=== PATIENT | female | born 2000 | race Caucasian/White ===

== ENCOUNTER 2024-09-27 17:06 | Emergency (ER) | payer BC, SELFPAY ==
[2024-09-27 17:26] VITALS: BP 133/72; PULSE 75; RESP 16; TEMP 37.1; O2SAT 97; BMI 24.0
--- NOTE | 2024-09-27 18:31 | ED.GENADULT ---
HPI - General Adult General Chief complaint: Skin/Abscess/Foreign Body Stated complaint: cut on left hand Time Seen by Provider: 09/27/24 18:19 History of Present Illness HPI narrative: Pt here for eval of numbness to pointer finger after injury to L hand/base of pointer finger while whittling wood this afternoon. Pt was seen in , injury treated with wound glue. Per Pt: After going home and discussing numbness with family and internet search , Pt is concerned about time-sensitive nerve damage. Tetanus UTD as of today. 24-year-old young woman presenting to the emergency department with concern of numbness persisting in her left index finger on the radial side. Was seen earlier today in urgent care following a laceration to the palm over the MCP of the 1st finger. Was assessed to be rather superficial and ultimately closed with glue following cleaning and exploration. Did have diminished sensation in this same area at that time and was recommended to be seen if symptoms were not resolving. Function was noted to be normal. It sounds like after further consideration with parents and further research has concerns about possibly needing nerve repair. Requesting an ultrasound for assessment in this regard. Deanna suspects that this laceration was deeper than initially suspected. Is concerned about long-term lack of sensation here. I believe right-hand dominant. Is also having a good deal of pain over the MCP joint with extension. Related Data Home Medications ?Medication ?Instructions ?Recorded ?Confirmed isvomow-uenfotijvcedl-jaznzmep 250 2 tab PO Q6H PRN 08/29/24 09/27/24 mg-250 mg-65 mg tablet (Excedrin Migraine) Previous Rx's ?Medication ?Instructions ?Recorded desogestrel 0.15 mg-ethinyl 1 tab PO QDAY #84 tabs 09/05/24 estradiol 0.03 mg tablet (Apri) Allergies Allergy/AdvReac Type Severity Reaction Status Date / Time No Known Drug Allergies Allergy Verified 09/27/24 17:26 Review of Systems Status of ROS: Reports: 6 or more systems reviewed and unremarkable except as noted in History and below PFSH PFSH Surgical History History of sinus surgery ?Z98.890 - Other specified postprocedural states (ICD-10) H/O wisdom tooth extraction ?K08.409 - Partial loss of teeth, unspecified cause, unspecified class (ICD-10) Family History Mother Depression Thyroid disease Social History Narrative: [employer] student Active in dance Nonsmoker 2-3 drinks per week Highest level of school completed/degree received: high school graduate Physical activity type details: Dance Smoking Status: Never smoker How often do you have a drink containing alcohol: 2-4 times a month How many standard drinks containing alcohol do you have on a typical day: 1 or 2 How often do you have six or more drinks on one occasion: Never AUDIT-C Alcohol total score: 2 Non-prescribed substance use: marijuana (any form) Exam Narrative: Exam Narrative: Very pleasant. NAD. Favoring the left hand. Examination of this hand shows intact strength to flexion and extension at all joints. Pain as noted particularly with isolated flexion of the index finger at the MCP joint. Glue is in place. I do not see surrounding erythema or unusual swelling. Sensation is diminished well actually appears to be absent in a patch involving the radial side of the finger extend from the middle of the middle phalanx to about a cm from the tip of the finger. Normal sensation is present over the dorsum of the finger as well as the volar surface otherwise. There is intact sensation over the pad of the finger. This sensation is lost in this noted area also to pinprick. Const: Vital Signs, click to edit/add: Vital Signs - 24 hr 09/27/24 17:26 09/27/24 19:25 Temperature 98.7 F Pulse Rate [Pulse Oximeter] 75 72 Respiratory Rate 16 [facility] 133/72 122/65 Pulse Oximetry 97 Oxygen Delivery Me thod Room Air Documenting provider has reviewed patient's vital signs: yes Course Vital Signs Vital signs: Initial Vital Signs Temperature 98.7 F 09/27/24 17:26 Temperature Source Temporal Artery Scan 09/27/24 17:26 Pulse Rate 75 09/27/24 17: Pulse Rhythm Regular 09/27/24 17:26 Respiratory Rate 16 09/27/24 17:26 Blood Pressure 133/72 09/27/24 17: Blood Pressure Mean 92 09/27/24 17: Blood Pressure Position Sitting 09/27/24 17:26 Pulse Oximetry 97 09/27/24 17:26 Oxygen Delivery Method Room Air 09/27/24 17:26 Vital Signs Temperature 98.7 F 09/27/24 17:26 Pulse Rate 75 09/27/24 17:26 Respiratory Rate 16 09/27/24 17:26 Blood Pressure 133/72 09/27/24 17:26 Pulse Oximetry 97 09/27/24 17:26 Oxygen Delivery Method Room Air 09/27/24 17:26 Temperature 98.7 F 09/27/24 17:26 Pulse Rate 72 09/27/24 19:25 Respiratory Rate 16 09/27/24 17:26 Blood Pressure 122/65 09/27/24 19:25 Pulse Oximetry 97 09/27/24 17:26 Oxygen Delivery Method Room Air 09/27/24 17:26 Medical Decision Making MDM Narrative Medical decision making narrative: Considering lack of sensation I would expect that this laceration is deeper than initially assessed or related to subcutaneous swelling. Without a loss of function and with intact sensation at the pad of the finger I can not imagine that hand specialist would intervene and do any nerve repair. Limited ultrasound skill to assess nerve damage but willing to have a look. I did bring the ultrasound machine to the room but Deanna ultimately felt it was not be necessary. I did also offer to discuss with hand specialist but again stated that I had a hard time believing that there would be any intervention offered here. Ultimately Deanna felt this would not be necessary. We did decide to place a dorsal splint to isolate the MCP joint. Hopefully this will decrease discomfort and likely inflammation and related swelling. I would reassess in the next few days as to expectations regarding this patch of anesthesia. Monitor also for inflammation that might be more related to the topical adhesive. Discussed also supplements for nerve regrowth per concern. See patient discharge plan for further discussion Yes I believe B vitamin supplementation is what can be recommended for nerve healing. This is something though that you might have to take for very long time. Can take many months, a year or more for minor nerve injury to be healed. You might consider icing the palm of your hand few times daily over the next few days. Hopefully the security and limited movement achieved with this splint will help with healing as well. I probably would not wear this much beyond a week. for further scar reduction/wound healing if desired -- after the scab falls off, can apply daily vitamin e oil or something like maderma or silicone-containing ointments or bandaids daily. Watch for spreading redness after 2 days accompanied by heat, swelling, marked increase in pain, purulent drainage. Hopefully you can get back to this bailey soon. Medical Records Medical records reviewed: Yes I reviewed the patient's medical records Discharge Plan Discharge Clinical Impression: Paresthesia, Hand laceration Patient Disposition: Home, Self-Care Condition: Improved Additional Instructions: Yes I believe B vitamin supplementation is what can be recommended for nerve healing. This is something though that you might have to take for very long time. Can take many months, a year or more for minor nerve injury to be healed. You might consider icing the palm of your hand few times daily over the next few days. Hopefully the security and limited movement achieved with this splint will help with healing as well. I probably would not wear this much beyond a week. for further scar reduction/wound healing if desired -- after the scab falls off, can apply daily vitamin e oil or something like maderma or silicone-containing ointments or bandaids daily. Watch for spreading redness after 2 days accompanied by heat, swelling, marked increase in pain, purulent drainage. Hopefully you can get back to this bailey soon. Prescriptions: No Action Excedrin Migraine 250-250-65 mg tablet 2 tab PO Q6H PRN desogestrel-ethinyl estradiol [Apri] 0.15-0.03 mg tablet 1 tab PO QDAY Qty: 84 3RF Follow Up/Referrals: Vania Sharp, [employer]NAL WORK[employer] HELPER [Primary Care Provider, Family Practice] Stand Alone Forms: House Partyth Info Instructions
[2024-09-27 19:25] VITALS: BP 122/65; PULSE 72
== END 2024-09-27 19:26 | disposition home or self-care (01) ==
PROVIDERS: Emergency Provider Family Medicine; PCP Registered Nurse
DX: R20.2 Paresthesia of skin (principal); S61.412A Laceration without foreign body of left hand, initial encounter
CPT/HCPCS: 99283